=== PATIENT | male | born 1990 | race Caucasian/White ===

== ENCOUNTER 2025-05-11 10:34 | Emergency (ER) | payer SELFPAY ==
[2025-05-11 11:14] LABS: APPEARANCE,URINE CLEAR; GLUCOSE,URINE NEGATIVE (NEGATIVE); OCCULT BLOOD,URINE NEGATIVE (NEGATIVE)
[2025-05-11 12:54] LABS: C. TRACHOMATIS BY PCR NOT DETECTED; N. GONORRHOEAE BY PCR NOT DETECTED
[2025-05-11] MEDS: Lidocaine 1% PF 2 ML SDV INJECT ONE (13:14)
== END 2025-05-11 13:10 | disposition home or self-care (01) ==
LOC: MW.ED 10:34
DX: S01.412A Laceration without foreign body of left cheek and temporomandibular area, initial encounter (principal); Z11.3 Encounter for screening for infections with a predominantly sexual mode of transmission; W01.198A Fall on same level from slipping, tripping and stumbling with subsequent striking against other object, initial encounter
CPT/HCPCS: 12011; 36415; 81003; 86592; 87389; 87491; 87591; 99283; J2003